=== PATIENT | female | born 1955 | race Caucasian/White ===

== ENCOUNTER 2017-01-11 21:54 | Emergency (ER) | payer OTHER ==
--- NOTE | 2017-01-11 21:58 | PDOC ---
Rapid Medical Evaluation Chief Complaint: Lightheaded Time Seen by Provider: 01/11/17 21:57 Medical Evaluation: Allergies Allergy/AdvReac Type Severity Reaction Status Date / Time Iodinated Contrast Media - Allergy Verified 11/02/16 12:13 Oral and [Iodinated Contrast Media - IV Dye] 01/11/17 21:58 I have performed a brief in-person evaluation of this patient. The patient presents with a chief complaint of:dizziness, mild ALVARADO, HTN Pertinent physical exam findings: wnl I have ordered the following:cbc, cmp, troponin, ekg The patient will proceed to the ED for further evaluation.
[2017-01-11 22:00] VITALS: BP 131/77; PULSE 76; TEMP 97.5; BMI 26.4
[2017-01-11 22:26] LABS: BASOPHIL 0.7 % (0-2.0); EOSINOPHIL 1.2 % (0-4.5); MCH 30.7 pg (25.7-33.7); MCHC 33.7 g/dl (32.0-36.0); MEAN PLT VOLUME 8.8 fl (7.5-11.1); NEUTROPHILS 64.6 % (42.8-82.8); PLATELET COUNT 229 K/MM3 (134-434); RDW 13.2 % (11.6-15.6); WHITE BLOOD COUNT 6.5 K/mm3 (4.0-10.0)
--- NOTE | 2017-01-11 23:02 | PDOC ---
History of Present Illness - General Chief Complaint: Blood Pressure Problem Stated Complaint: BLOOD PRESSURE PROBLEM Time Seen by Provider: 01/11/17 21:57 History Source: Patient, Other (son) Exam Limitations: No Limitations - History of Present Illness Timing/Duration: other (1 month) Associated Symptoms: reports: headaches. denies: chest pain, cough, diaphoresis , nausea/vomiting, seizure, shortness of breath Past History - Travel Traveled outside of the country in the last 30 days: No Close contact w/someone who was outside of country & ill: No - Past Medical History Allergies/Adverse Reactions: Allergies Allergy/AdvReac Type Severity Reaction Status Date / Time Iodinated Contrast Media - Allergy Verified 01/11/17 21:58 Oral and [Iodinated Contrast Media - IV Dye] Home Medications: Ambulatory Orders Atenolol [Tenormin -] 25 mg PO DAILY 01/10/15 Simvastatin [Zocor -] 20 mg PO HS 01/10/15 Aspirin Coated [Ecotrin -] 81 mg PO DAILY 05/24/16 Lisinopril [Prinivil] 10 mg PO DAILY 05/24/16 Lorazepam [Ativan] 1 mg PO TID #21 tablet MDD 3 05/24/16 Tolterodine Tartrate [Detrol -] 2 mg PO ASDIR 05/24/16 HTN: Yes Kidney Stones: Yes Psychiatric Problems: Yes (Anxiety) - Psycho/Social/Smoking Cessation Hx Suicidal Ideation: No Smoking History: Never smoked Hx Alcohol Use: No Drug/Substance Use Hx: No Substance Use Type: None Review of Systems - Review of Systems Able to Perform ROS?: Yes Comments:: 01/11/17 23:01 CONSTITUTIONAL: Absent: fever, chills, diaphoresis, generalized weakness, malaise, loss of appetite HEENT: Absent: rhinorrhea, nasal congestion, throat pain, throat swelling, difficulty swallowing, mouth swelling, ear pain, eye pain, visual Changes CARDIOVASCULAR: Absent: chest pain, loss of consciousness, palpitations, irregular heart rate, peripheral edema RESPIRATORY: Absent: cough, shortness of breath, dyspnea with exertion, orthopnea, wheezing, stridor, hemoptysis GASTROINTESTINAL: Absent: abdominal pain, abdominal distension, nausea, vomiting, diarrhea, constipation, melena, hematochezia GENITOURINARY: Absent: dysuria, frequency, urgency, hesitancy, hematuria, flank pain, genital pain MUSCULOSKELETAL: Absent: myalgia, arthralgia, joint swelling SKIN: Absent: rash, itching, pallor HEMATOLOGIC/IMMUNOLOGIC: Absent: easy bleeding, easy bruising, lymphadenopathy, frequent infections ENDOCRINE: Absent: unexplained weight gain, unexplained weight loss, heat intolerance, cold intolerance NEUROLOGIC: Frontal monge Absent: focal weakness or paresthesias, dizziness, unsteady gait, seizure, mental status changes, bladder or bowel incontinence PSYCHIATRIC: Absent: anxiety, depression, suicidal or homicidal ideation, hallucinations. Is the patient limited Turkish proficient: No *Physical Exam - Vital Signs Last Vital Signs Temp Pulse Resp BP Pulse Ox 97.5 F L 76 18 131/77 97 01/11/17 21:58 01/11/17 21:58 01/11/17 21:58 01/11/17 21:58 01/11/17 21:58 - Physical Exam Comments: 01/11/17 23:01 GENERAL: Well developed, well nourished. Awake and alert. No acute distress. HEENT: Normocephalic, atraumatic. PERRLA, EOMI. No conjunctival pallor. Sclera are non- icteric. Moist mucous membranes. Oropharynx is clear. NECK: Supple. Full ROM. No JVD. Carotid pulses 2+ and symmetric, without bruits. No thyromegaly. No lymphadenopathy. CARDIOVASCULAR: Regular rate and rhythm. No murmurs, rubs, or gallops. Distal pulses are 2+ and symmetric. PULMONARY: No evidence of respiratory distress. Lungs clear to auscultation bilaterally. No wheezing, rales or rhonchi. ABDOMINAL: Soft. Non-tender. Non-distended. No rebound or guarding. No organomegaly. Normoactive bowel sounds. MUSCULOSKELETAL Normal range of motion at all joints. No bony deformities or tenderness. No CVA tenderness. EXTREMITIES: No cyanosis. No clubbing. No edema. No calf tenderness. SKIN: Warm and dry. Normal capillary refill. No rashes. No jaundice. NEUROLOGICAL: Alert, awake, appropriate. Cranial nerves 2-12 intact. No deficits to light touch and temperature in face, upper extremities and lower extremities. No motor deficits in the in face, upper extremities and lower extremities. Normoreflexic in the upper and lower extremities. Normal speech. Toes are down- going bilaterally. Gait is normal without ataxia. PSYCHIATRIC: Cooperative. Good eye contact. Appropriate mood and affect. ED Treatment Course - LABORATORY CBC & Chemistry Diagram: 01/11/17 22:09 01/11/17 23:20 - ADDITIONAL ORDERS Additional order review: Laboratory Results 01/11/17 22:09 Sodium Cancelled Potassium Cancelled Chloride Cancelled Carbon Dioxide Cancelled Anion Gap Cancelled BUN Cancelled Creatinine Cancelled Creat Clearance w eGFR Cancelled Random Glucose Cancelled Calcium Cancelled Total Bilirubin Cancelled AST Cancelled ALT Cancelled Alkaline Phosphatase Cancelled Creatine Kinase Cancelled Troponin I Cancelled Total Protein Cancelled Albumin Cancelled 01/11/17 22:09 RBC 4.34 MCV 91.0 MCHC 33.7 RDW 13.2 MPV 8.8 Neutrophils % 64.6 Lymphocytes % 26.0 Monocytes % 7.5 Eosinophils % 1.2 D Basophils % 0.7 *DC/Admit/Observation/Transfer Diagnosis at time of Disposition: Dizziness Headache Qualifiers: Headache type: unspecified Headache chronicity pattern: chronic headache Intractability: not intractable Qualified Code(s): R51 - Headache - Discharge Dispostion Disposition: HOME Condition at time of disposition: Stable - Referrals Referrals: Varun Forrest MD [Primary Care Provider] - Chase Lopez MD [Staff Physician] - - Patient Instructions Printed Discharge Instructions: DI for Dizziness-Nonvertigo Additional Instructions: Rest Avoid driving or operating heavy machinery when experiencing dizziness Follow-up with your primary care physician I have listed a neurologist on your discharge, call and make an appointment. Return back to the emergency department for severe/persistent or worsening symptoms. Progress Note - Progress Note Progress Note: 61-year-old female presents to the emergency department with her son complaining of 2/10 dull nonradiating intermittent frontal headache x1 month without dizziness, lightheadedness, neck pains, chest pain, back pain, shortness of breath, abdominal pains, urinary symptoms, extremity numbness or tingling sensation. Patient has been seen by her PMD and board operator for the same symptoms. Her PMD recently increased her hypertension medication: Atenolol 50 mg to 100 mg daily, lisinopril 10 mg to 20 mg daily. Patient had an echocardiogram 2 weeks ago and was informed by her board operator that is fine. Patient was given an MRI to the brain 2 days ago and was informed by her PMD that it is within normal limits today. This evening, patient states she thought she had hypertension. Patient and her son adamantly refuses a CT without contrast of the head because she had an MRI 2 days ago.
--- NOTE | 2017-01-11 23:07 | PDOC ---
[id number] 97 01/11/17 21:58 01/11/17 21:58 01/11/17 21:58 01/11/17 21:58 01/11/17 21:58 ED Treatment Course - LABORATORY CBC & Chemistry Diagram: 01/11/17 22:09 01/11/17 23:20 - ADDITIONAL ORDERS Additional order review: Laboratory Results 01/11/17 22:09 Sodium Cancelled Potassium Cancelled Chloride Cancelled Carbon Dioxide Cancelled Anion Gap Cancelled BUN Cancelled Creatinine Cancelled Creat Clearance w eGFR Cancelled Random Glucose Cancelled Calcium Cancelled Total Bilirubin Cancelled AST Cancelled ALT Cancelled Alkaline Phosphatase Cancelled Creatine Kinase Cancelled Troponin I Cancelled Total Protein Cancelled Albumin Cancelled 01/11/17 22:09 RBC 4.34 MCV 91.0 MCHC 33.7 RDW 13.2 MPV 8.8 Neutrophils % 64.6 Lymphocytes % 26.0 Monocytes % 7.5 Eosinophils % 1.2 D Basophils % 0.7 Medical Decision Making - Medical Decision Making 01/11/17 23:07 agree with care from KO Arevalo *DC/Admit/Observation/Transfer Diagnosis at time of Disposition: Dizziness, Head ache - Discharge Dispostion Disposition: HOME Condition at time of disposition: Stable - Referrals Referrals: Chase Lopez MD [Staff Physician] - Varun Forrest MD [Primary Care Provider] - - Patient Instructions Printed Discharge Instructions: DI for Dizziness-Nonvertigo Additional Instructions: Rest Avoid driving or operating heavy machinery when experiencing dizziness Follow-up with your primary care physician I have listed a neurologist on your discharge, call and make an appointment. Return back to the emergency department for severe/persistent or worsening symptoms.
[2017-01-11 23:18] LABS: URINE APPEARANCE CLEAR; URINE BILIRUBIN NEGATIVE (NEGATIVE); URINE BLOOD NEGATIVE (NEGATIVE); URINE COLOR COLORLESS; URINE GLUCOSE (UA) NEGATIVE (NEGATIVE); URINE KETONE NEGATIVE (NEGATIVE); URINE LEUK ESTERASE NEGATIVE (NEGATIVE); URINE NITRITE NEGATIVE (NEGATIVE); URINE PROTEIN NEGATIVE (NEGATIVE); URINE UROBILINOGEN NEGATIVE E.U./dl (0.2-1.0)
[2017-01-12 00:02] LABS: ALBUMIN 3.8 g/dl (3.4-5.0); ANION GAP 10 (8-16); CALCIUM 8.7 mg/dL (8.5-10.1); CO2 27 mmol/L (21-32); GLUCOSE,RANDOM 141 mg/dL (74-106)
[2017-01-12 00:09] LABS: ALK PHOS 50 U/L (45-117); BILIRUBIN,TOTAL 0.3 mg/dL (0.2-1.0); CREATININE 0.6 mg/dL (0.55-1.02); SGPT/ALT 35 U/L (12-78); TOT PROT 6.9 g/dl (6.4-8.2); TROPONIN I < 0.02 ng/ml (0.00-0.05)
[2017-01-12 00:17] LABS: SGOT/AST 26 U/L (15-37)
--- NOTE | 2017-01-12 09:56 | EKG ---
Test Reason : Blood Pressure : / mmHG Vent. Rate : 071 BPM Atrial Rate : 071 BPM P-R Int : 154 ms QRS Dur : 082 ms QT Int : 410 ms P-R-T Axes : 049 057 064 degrees QTc Int : 445 ms NORMAL SINUS RHYTHM NONSPECIFIC T WAVE ABNORMALITY WHEN COMPARED WITH ECG OF 24-MAY-2016 17:35, NO SIGNIFICANT CHANGE WAS FOUND Confirmed by HOMA JERRY MD ([id number]) on 01/12/2017 9:55:47 AM Referred By: Confirmed By:HOMA JERRY MD
== END 2017-01-12 00:31 | disposition home or self-care (01) ==
LOC: JER 21:54
DX: R51 Headache (principal); I10 Essential (primary) hypertension; F41.9 Anxiety disorder, unspecified
CPT/HCPCS: 36415; 80053; 81003; 82550; 84484; 85025; 93005; 93010; 99282-25

== ENCOUNTER 2022-03-09 18:01 | Emergency (ER) | payer OTHER ==
[2022-03-09 18:37] VITALS: BP 168/85; PULSE 77; TEMP 98.2; BMI 28.5
[2022-03-09] MEDS ORDERED: ACETAMINOPHEN 325 MG TABLET (FP) PO ONE (19:31)
[2022-03-09] MEDS ORDERED: ACETAMINOPHEN 325 MG TABLET (FP) ONE (19:48)
== END 2022-03-09 21:06 | disposition home or self-care (01) ==
LOC: JER 18:01
DX: R51.9 Headache, unspecified (principal); I10 Essential (primary) hypertension
CPT/HCPCS: 70450-TC; 99284-25